=== PATIENT | male | born 1960 | race Caucasian/White ===

== ENCOUNTER 2017-08-15 17:27 | Emergency (ER) | payer MEDICAID, OTHER ==
[~2017-08-15] VITALS: Ht 190.5 cm; Wt 110.0 kg
[~2017-08-15 17:27] MED LIST: AMOX1TAB64 PO; OXYC-302 PO
[2017-08-15 17:29] VITALS: BP 167/96
[2017-08-15] MEDS ORDERED: OXYcodone/APAP 5/325MG TABLET PO ONE (18:00)
[2017-08-15] MEDS ORDERED: OXYcodone/APAP 5/325MG TABLET ONE (18:02)
== END 2017-08-15 19:40 | disposition home or self-care (01) ==
LOC: ED 19:34
DX: S62.636A Displaced fracture of distal phalanx of right little finger, initial encounter for closed fracture (principal); G89.11 Acute pain due to trauma; M25.561 Pain in right knee; M79.89 Other specified soft tissue disorders; I10 Essential (primary) hypertension; W01.0XXA Fall on same level from slipping, tripping and stumbling without subsequent striking against object, initial encounter; Y93.89 Activity, other specified; Y92.89 Other specified places as the place of occurrence of the external cause; Y99.8 Other external cause status
CPT/HCPCS: 29130; 29505; 99284

== ENCOUNTER 2017-11-10 01:50 | Inpatient (IN) | payer OTHER ==
[~2017-11-10] VITALS: Ht 190.5 cm; Wt 116.8 kg
[2017-11-10] MEDS ORDERED: SODIUM CHLORIDE 0.9% 1,000ML IVBOLUS ONE (02:00)
[2017-11-10] MEDS ORDERED: MORPHINE SULFATE 4 MG/ML, 1ML IVPush PRN (02:00)
[2017-11-10] MEDS ORDERED: SODIUM CHLORIDE FLUSH 10ML SYR IVF ONE (02:00)
[2017-11-10] MEDS ORDERED: ONDANSETRON 2MG/ML, 2ML IVPush ONE (02:00)
[2017-11-10 02:13] LABS: BASOPHILS % (AUTO) 1 % (0-1); EOSINOPHILS # (AUTO) 0.17 x10^3/uL (0-0.4); EOSINOPHILS % (AUTO) 2 % (1-7); LYMPHOCYTES # (AUTO) 2.45 x10^3/uL (1-3.4); LYMPHOCYTES % (AUTO) 24 % (22-44); MD NO; MEAN CORPUSCULAR HEMOGLOBIN 30.8 pg (27.5-34.5); MEAN CORPUSCULAR HGB CONC 33.5 g/dL (33.2-36.2); MEAN CORPUSCULAR VOLUME 92.1 fL (81-97); MEAN PLATELET VOLUME 8.7 fL (7.4-10.4); MONOCYTES # (AUTO) 0.73 x10^3/uL (0.2-0.8); MONOCYTES % (AUTO) 7 % (2-9); NEUTROPHILS # (AUTO) 6.81 x10^3/uL (1.8-6.8); NEUTROPHILS % (AUTO) 66 % (42-75); PLATELET COUNT 274 x10^3/uL (130-400); RED BLOOD COUNT 5.19 x10^6/uL (4.38-5.82); RED CELL DISTRIBUTION WIDTH 13.4 % (9.4-14.8)
[2017-11-10] MEDS ORDERED: ONDANSETRON 2MG/ML, 2ML ONE (02:18)
[2017-11-10] MEDS ORDERED: MORPHINE SULFATE 4 MG/ML, 1ML ONE (02:18)
[2017-11-10] MEDS ORDERED: OMNIPAQUE 350 MG/ML, 100ML BOTTLE ONE (02:21)
[2017-11-10 02:24] LABS: ALANINE AMINOTRANSFERASE 25 U/L (12-78); ALBUMIN 3.8 g/dL (3.4-5.0); ANION GAP 11 mmol/L (5-15); CALCIUM 9.6 mg/dL (8.5-10.1); CHLORIDE 112 mmol/L (98-107); CREATININE 1.65 mg/dL (0.7-1.3)
[2017-11-10 02:28] LABS: ALKALINE PHOSPHATASE 65 U/L (45-117); BILIRUBIN,TOTAL 0.5 mg/dL (0.2-1.0); INTERNATIONAL NORMALIZED RATIO 0.97 (0.93-1.1); PROTHROMBIN TIME 10.1 Seconds (9.6-11.5); TOTAL PROTEIN 7.2 g/dL (6.4-8.2); TROPONIN I < 0.015 ng/mL (0.000-0.045)
[2017-11-10 04:27] VITALS: BP 124/70
[2017-11-10] MEDS ORDERED: hydrALAzine 20 MG/ML, 1ML IVPush PRN (05:00)
[2017-11-10] MEDS ORDERED: DOCUSATE 100 MG CAPSULE PO PRN (05:00)
[2017-11-10] MEDS ORDERED: SODIUM CHLORIDE 0.9% 1,000 ML IV SCH (05:00)
[2017-11-10] MEDS ORDERED: POLYETHYLENE GLYCOL 17 GM PACKET PO PRN (05:00)
[2017-11-10] MEDS ORDERED: ACETAMINOPHEN 325 MG TABLET PO PRN (05:00)
[2017-11-10] MEDS ORDERED: OXYcodone IR 5MG TABLET PO PRN (05:00)
[2017-11-10] MEDS ORDERED: morphine SULFATE 10 MG/ML, 1ML IVPush PRN (05:00)
[2017-11-10] MEDS ORDERED: ONDANSETRON 2MG/ML, 2ML IVPush PRN (05:00)
[2017-11-10] MEDS ORDERED: NITROGLYCERIN 0.4 MG BOTTLE (25 TABS) SL PRN (05:00)
[2017-11-10] MEDS ORDERED: ONDANSETRON ODT 4 MG PO PRN (05:00)
[2017-11-10] MEDS ORDERED: BISACODYL 10 MG SUPP PR PRN (05:00)
[2017-11-10] MEDS ORDERED: PROMETHAZINE 25 MG/ML, 1ML IM PRN (05:00)
[2017-11-10] MEDS: HEPARIN 5,000 UNITS/ML, 1ML SQ SCH ×3 (05:27→20:17)
[2017-11-10] MEDS: ASPIRIN 325 MG TABLET EC PO SCH (05:27)
[2017-11-10 06:21] LABS: FREE T4 (FREE THYROXINE) 1.02 ng/dL (0.76-1.46); THYROID STIMULATING HORMONE 0.639 mIU/L (0.358-3.740)
[2017-11-10 07:10] LABS: TROPONIN I < 0.015 ng/mL (0.000-0.045)
[2017-11-10 07:37] LABS: HEMOGLOBIN A1C 5.5 % (4.2-6.3)
[2017-11-10 07:38] VITALS: BP 149/89
[2017-11-10 11:48] VITALS: BP 128/77
[2017-11-10] MEDS: LISINOPRIL 20 MG TABLET PO SCH (11:49)
[2017-11-10] MEDS ORDERED: REGADENOSON 0.4 MG/5 ML SYRINGE ONE (11:58)
[2017-11-10 14:05] VITALS: BP 132/73
[2017-11-10 14:30] LABS: TROPONIN I < 0.015 ng/mL (0.000-0.045)
[2017-11-10 20:23] VITALS: BP 118/71
[2017-11-11 02:50] VITALS: BP 124/64
[2017-11-11] MEDS: HEPARIN 5,000 UNITS/ML, 1ML SQ SCH (05:35)
[2017-11-11] MEDS: ASPIRIN 325 MG TABLET EC PO SCH (05:35)
[2017-11-11 06:10] LABS: CULTURE INDICATED? NO; MICROSCOPIC NOT IND
[2017-11-11 06:12] LABS: AMPHETAMINE SCREEN, URINE Positive (Negative); BARBITURATE SCREEN, URINE Negative (Negative); BENZODIAZEPINE SCREEN, URINE Negative (Negative); CANNABINOID SCREEN, URINE Positive (Negative); COCAINE SCREEN, URINE Negative (Negative); METHADONE SCREEN, URINE Negative (Negative); OPIATE SCREEN, URINE Negative (Negative)
[2017-11-11 06:17] LABS: BASOPHILS # (AUTO) 0.08 x10^3/uL (0-0.1); BASOPHILS % (AUTO) 1 % (0-1); EOSINOPHILS % (AUTO) 2 % (1-7); LYMPHOCYTES # (AUTO) 2.15 x10^3/uL (1-3.4); LYMPHOCYTES % (AUTO) 25 % (22-44); MD NO; MEAN CORPUSCULAR HEMOGLOBIN 31.2 pg (27.5-34.5); MEAN CORPUSCULAR HGB CONC 33.4 g/dL (33.2-36.2); MEAN CORPUSCULAR VOLUME 93.4 fL (81-97); MEAN PLATELET VOLUME 8.7 fL (7.4-10.4); MONOCYTES # (AUTO) 0.64 x10^3/uL (0.2-0.8); MONOCYTES % (AUTO) 7 % (2-9); NEUTROPHILS # (AUTO) 5.71 x10^3/uL (1.8-6.8); NEUTROPHILS % (AUTO) 65 % (42-75); PLATELET COUNT 226 x10^3/uL (130-400); RED BLOOD COUNT 4.77 x10^6/uL (4.38-5.82); RED CELL DISTRIBUTION WIDTH 13.9 % (9.4-14.8)
[2017-11-11 06:21] LABS: ALANINE AMINOTRANSFERASE 22 U/L (12-78); ALBUMIN 3.1 g/dL (3.4-5.0); ANION GAP 7 mmol/L (5-15); CALCIUM 9.4 mg/dL (8.5-10.1); CHLORIDE 113 mmol/L (98-107); CREATININE 1.16 mg/dL (0.7-1.3)
[2017-11-11 06:23] LABS: ALKALINE PHOSPHATASE 58 U/L (45-117); BILIRUBIN,TOTAL 0.5 mg/dL (0.2-1.0); CHOL/HDL RATIO 2.5; CHOLESTEROL, TOTAL 106 mg/dL (140-239); HDL CHOL % 40 % (26-37); HDL CHOLESTEROL (DIRECT) 42 mg/dL (40-60); LDL CHOLESTEROL,CALCULATED 45 mg/dL (54-169); LDL/HDL RATIO 1.1 (0.5-3.0); TOTAL PROTEIN 6.2 g/dL (6.4-8.2); TRIGLYCERIDES 95 mg/dL (50-200); VLDL CHOLESTEROL 19 mg/dL (0-25)
[2017-11-11 06:55] VITALS: BP 142/91
[2017-11-11] MEDS: LISINOPRIL 20 MG TABLET PO SCH (08:31)
== END 2017-11-11 09:09 | disposition left against medical advice (07) | DRG 299 ==
LOC: ED 03:00 → EDIP 03:01 → 4WST 04:02
PROVIDERS: ADMIT Internal Medicine; ATTEND Internal Medicine
DX: I71.2 Thoracic aortic aneurysm, without rupture (principal); N17.0 Acute kidney failure with tubular necrosis; R07.2 Precordial pain; D72.829 Elevated white blood cell count, unspecified; F17.290 Nicotine dependence, other tobacco product, uncomplicated; I10 Essential (primary) hypertension; N40.0 Benign prostatic hyperplasia without lower urinary tract symptoms; Z91.14 Patient's other noncompliance with medication regimen; Z88.0 Allergy status to penicillin
CPT/HCPCS: 36415; 71275; 74175; 78452; 80053; 80061; 80307; 81003; 83036; 83690; 83735; 83880; 84439; 84443; 84484; 85025; 85610; 85730; 86850; 86900; 93005; 93017; 93306; 96361; 96374; 99285; J1644; J2405; J2785; Q9967; A9502; C9898; J7030